=== PATIENT | female | born 1965 | race Caucasian/White ===

== ENCOUNTER 2023-12-21 07:30 | Outpatient (CLI) | payer BC ==
[2023-12-21] MEDS ORDERED: Iopamidol 300 61% 100 ML VIAL FS ONE (11:04)
== END 2023-12-21 07:31 | disposition home or self-care (01) ==
LOC: CSHCT 07:30
PROVIDERS: ATTEND Physician Assistant Medical
DX: Z86.010 Personal history of colon polyps (principal); Z80.0 Family history of malignant neoplasm of digestive organs; R13.10 Dysphagia, unspecified; R31.29 Other microscopic hematuria; R10.32 Left lower quadrant pain; R59.9 Enlarged lymph nodes, unspecified
CPT/HCPCS: 74177; Q9967

== ENCOUNTER 2024-01-11 12:21 | Outpatient (CLI) | payer BC ==
[~2024-01-11 12:21] MED LIST: Magnevist 469MG/ML 20 ML VIAL ONE
== END 2024-01-11 12:22 | disposition home or self-care (01) ==
LOC: CSHMRI 12:21
PROVIDERS: ATTEND Physician Assistant Medical
DX: R16.0 Hepatomegaly, not elsewhere classified (principal)
CPT/HCPCS: 74183